=== PATIENT | male | born 1990 | race Hispanic/Latino ===

== ENCOUNTER 2018-05-14 01:58 | Emergency (ER) | payer OTHER ==
[2018-05-14 02:18] VITALS: O2SAT 98
[2018-05-14] MEDS ORDERED: Sodium Chloride 0.9% 1,000 ML IV ONE (02:35)
[2018-05-14] MEDS ORDERED: Bacitracin 500 Units/gm Oint Foilpak UD TOP STA (02:43)
[2018-05-14] MEDS ORDERED: Tdap Vaccine 0.5 ml Vial (10-64 yrs) IM ONE ×2 (03:02→04:33)
[2018-05-14 03:13] LABS: BASO # 0.1 K/uL (0.0-0.2); BASO % 1.1 % (0.0-2.0); EOS # 0.1 K/uL (0.0-0.7); EOS % 1.2 % (0.0-4.0); HEMOGLOBIN 13.7 g/dL (12.0-18.0); LYMPH # 2.5 K/uL (1.0-4.3); LYMPH % 25.5 % (20.0-40.0); MEAN CELL VOLUME 89.2 fl (80.0-94.0); MEAN CORPUSCULAR HEMOGLOBIN 28.7 pg (27.0-31.0); MEAN CORPUSCULAR HGB CONC 32.2 g/dL (33.0-37.0); MEAN PLATELET VOLUME 12.1 fl (7.2-11.7); MONO # 0.4 K/uL (0.0-0.8); MONO % 4.4 % (0.0-10.0); NEUT # 6.7 K/uL (1.8-7.0); NEUT % 67.8 % (50.0-75.0); NRBC % 0.1 % (0.0-0.0); RBC 4.77 Mil/uL (4.40-5.90); RED CELL DISTRIBUTION WIDTH 13.1 % (11.5-14.5); WHITE BLOOD COUNT 9.9 K/uL (4.8-10.8)
[2018-05-14 03:19] LABS: INR 0.9; PROTHROMBIN TIME 10.7 Seconds (9.8-13.1)
[2018-05-14 03:21] LABS: PARTIAL THROMBOPLASTIN TIME 33.3 Seconds (25.6-37.1)
[2018-05-14 03:24] LABS: BLOOD UREA NITROGEN 11 mg/dl (9-20); CALCIUM 8.7 mg/dL (8.4-10.2); GFR NON-AFRICAN AMERICAN > 60
--- NOTE | 2018-05-14 03:54 | ED PDOC ---
HPI: Psych/Substance Abuse Time Seen by Provider: 05/14/18 02:26 Chief Complaint (Nursing): Trauma Chief Complaint (Provider): Trauma History Per: Patient, Other (girlfriend at bedside) History/Exam Limitations: intoxication Onset/Duration Of Symptoms: Mins Modifying Factor(s): Alcohol Additional Complaint(s): 27 y/o male with no significant PMHx presents to the ED for evaluation of alcohol intoxication and a head injury. Girlfriend at bedside reports she was calling an Uber when the patient walked away from her. Girlfriend states she then received a call that the patient was stuck in a fence. When going to find the patient, girlfriend states she found him on the floor, bleeding from his head and vomiting, next to a fence. Girlfriend presumes patient attempted to climb a fence and fell. Patient is unable to recall exactly what happened, unsure of LOC. Girlfriend reports patient has since had more than 10 episodes of vomiting. At this time, patient additionally complains of a headache and nausea. Patient admits to drinking BOAT DEC[place]. Patient is a limited historian due to alcohol intoxication. Otherwise: (-) extremity pain, (-) chest pain, (-) abdominal pain, (-) shortness of breath, (-) visual changes (-) numbness/weakness. PMD: unknown Tetanus Vaccination is not up to date. Past Medical History Reviewed: Historical Data, Nursing Documentation, Vital Signs Vital Signs: Last Vital Signs Temp 98.2 F 05/14/18 02:15 Pulse 105 H 05/14/18 02:15 Resp 18 05/14/18 02:15 BP Pulse Ox 98 05/14/18 02:15 - Medical History PMH: No Chronic Diseases - Surgical History Surgical History: No Surg Hx - Family History Family History: States: Unknown Family Hx - Social History Current smoker - smoking cessation education provided: No Alcohol: Social - Immunization History Hx Tetanus Toxoid Vaccination: No - Home Medications Home Medications: Ambulatory Orders Medication Instructions Recorded Acetaminophen [Acetaminophen 8 650 mg PO Q8 PRN #21 tablet.er 05/14/18 Hour] RX: Bacitracin Ointment 1 applic TOP BID #1 tube 05/14/18 [Bacitracin] RX: Naproxen 500 mg PO BID PRN #20 tab 05/14/18 - Allergies Allergies/Adverse Reactions: Allergies Allergy/AdvReac Type Severity Reaction Status Date / Time peanut Allergy ANAPHYLAXIS Verified 05/14/18 02:15 Review of Systems ROS Statement: Except As Marked, All Systems Reviewed And Found Negative Eyes: Negative for: Vision Change Cardiovascular: Negative for: Chest Pain Respiratory: Negative for: Shortness of Breath Gastrointestinal: Positive for: Nausea, Vomiting. Negative for: Abdominal Pain Musculoskeletal: Positive for: Other (Head Injury ). Negative for: Arm Pain, Leg Pain Neurological: Positive for: Headache Psych: Positive for: Other (alcohol intoxication) Physical Exam - Reviewed Nursing Documentation Reviewed: Yes Vital Signs Reviewed: Yes - Physical Exam Comments: GENERAL APPEARANCE: Patient is somnolent, actively vomiting, with odor of alcohol on breath. SKIN: Warm, dry; (-) cyanosis; (-) rash. HEAD: (+) Large area of edema to the frontal scalp and the left forehead. (+) superficial abrasions to the left side of forehead, (+) 3.5 cm linear, vertical laceration to the frontal scalp with active bleeding and surrounding tenderness (-) palpable bony deformity. EYES: (+) area of edema and ecchymosis to the lateral aspect of the left eye orbit. (+) superficial abrasions to the lateral aspect of the left eye orbit, (- ) conjunctival pallor, (-) scleral icterus. ENMT: Nose: (-) nasal tenderness (-) epistaxis; mucous membranes are dry. FROM mandible. No oral trauma. NECK: Supple, FROM (+) midline tenderness, (-) stiffness, (-) meningismus, (-) lymphadenopathy. CHEST AND RESPIRATORY: (-) rales, (-) rhonchi, (-) wheezes; breath sounds equal bilaterally. Respirations even and nonlabored. HEART AND CARDIOVASCULAR: (-) irregularity ABDOMEN AND GI: Soft; (-) tenderness (-) guarding (-) distention. EXTREMITIES: (-) deformity (-) limitation of motion (-) edema. NEURO AND PSYCH: Mental status as above. news anchor: Pupils equal and reactive; EOMI and painless; (-) facial asymmetry; tongue and uvula midline. Strength symmetric. Speech is slurred. Neuro exam limited due to intoxication. - Laboratory Results Result Diagrams: 05/14/18 02:50 05/14/18 02:50 - ECG O2 Sat by Pulse Oximetry: 98 (RA) Pulse Ox Interpretation: Normal Medical Decision Making Medical Decision Making: Time: 024 Impression: Alcohol Intoxication, Head Injury, Scalp Laceration Plan: -- CT Cervical Spine w/o Contrast -- CT Head w/o Contrast -- CT Maxillofacial w/o Contrast -- Alcohol Serum -- BMP -- CBC with differentials -- PTT -- Prothrombin Time -- Adacel (10-64 years) 0.5 ml IM -- Bacitracin 1 ea TOP -- Sodium chloride 0.9% IV 1000 mls/hr -- Sodium chloride 0.9% IV 1000 mlsh/hr -- Zofran Inj 8 mg IVP -- Food Beverage Manager -- IV Insertion [address] Serum alcohol: 291 CBC grossly unremarkable. CMP with slight hypokalemia. Coag profile WNL. 0445 Patient more awake in ED and interacting with girlfriend at bedside. Still unable to recall what happened BO[place]. Wound repair performed by Tamara MERCADO. See procedure note. Additional 1L NS ordered. Time: 521 CT RESULTS FINDINGS: BRAIN No acute intraparenchymal hemorrhage. No mass lesion. No CT evidence for acute territorial infarct. No midline shift or extra-axial collections. VENTRICLES: No hydrocephalus. ORBITS: The orbits are unremarkable. SINUSES AND MASTOIDS: The paranasal sinuses and mastoid air cells are clear. BONES: No fracture. SOFT TISSUES: Large left forehead hematoma is noted. IMPRESSION: No acute intracranial abnormality. Large left forehead hematoma. Electronically signed on May 14, 2018 5:22:02 AM EST by: Mannie Castro M.D., MBA Certified By ABR & CBC[employer] Fellowship Trained MRI and CT Specialist CT MAXILLOFACIAL FINDINGS: BRAIN No acute intraparenchymal hemorrhage. No mass lesion. No CT evidence for acute territorial infarct. No midline shift or extra-axial collections. VENTRICLES: No hydrocephalus. ORBITS: The orbits are unremarkable. SINUSES AND MASTOIDS: The paranasal sinuses and mastoid air cells are clear. BONES: No fracture. SOFT TISSUES: Large left forehead hematoma is noted. IMPRESSION: No acute intracranial abnormality. Large left forehead hematoma. Electronically signed on May 14, 2018 5:22:02 AM EST by: Mannie Castro M.D., ELADIO Certified By ABR & CBC[employer] Fellowship Trained MRI and CT Specialist CT CERVICAL RESULTS FINDINGS: ALIGNMENT: Bony alignment is anatomic. DEGENERATIVE CHANGES: No significant canal stenosis or neural foraminal narrowing evident. SOFT TISSUES: The prevertebral soft tissues are within normal limits. BONES: No acute fracture or aggressive appearing osseous lesion. IMPRESSION: No acute cervical spine abnormality. Electronically signed on May 14, 2018 5:25:35 AM EST by: Mannie Csatro M.D., MBA Certified By ABR & CBC[employer] Fellowship Trained MRI and CT Specialist Patient ambulatory in ED. Girlfriend at bedside states they will uber home. Patient oriented x3, requesting additional medicine for nausea. 4mg IVP zofran ordered. Staple removal advised in 5 days. 0615 On re-evaluation, patient reports improvement of symptoms. Lungs clear to auscultation, cardiac RRR, abdomen soft, non-tender, repeat neuro exam shows no focal findings. Vitals stable. Lab/Diagnostic results d/w the patient in great detail. Diagnosis of alcohol intoxication, scalp laceration, facial contusion, closed head injury s/p fall d/w the patient. Patient was observed in the ED for 4+ hours with no evidence of neurological deterioration. Based on history, exam and diagnostic results, plan will be for outpatient follow up with PMD/clinic. Patient instructed to follow-up with pmd / referral provided / the clinic in 1- 2 days without fail. Advised to take medication as prescribed. Return to the emergency room at any time for any new or worsening symptoms. Patient states he fully agrees with and understands discharge instructions. States that he agrees with the plan and disposition. Verbalized and repeated discharge instructions and plan. I have given the patient opportunity to ask any additional questions. Scribe Attestation: Documented by Telly Chung, acting as a scribe for Sally Mcdonald PA-C. Provider Scribe Attestation: All medical record entries made by the Scribe were at my direction and personally dictated by me. I have reviewed the chart and agree that the record accurately reflects my personal performance of the history, physical exam, medical decision making, and the department course for this patient. I have also personally directed, reviewed, and agree with the discharge instructions and disposition. Procedures - Laceration/Wound Repair Scalp Laceration Wound Length (cm): 4 Wound's Depth, Shape: superficial, linear Wound Explored: clean Irrigated w/ Saline (ccs): 100 Betadine Prep?: No Wound Debrided: minimal Wound Repaired With: [place] (x8) Layer Closure?: No Wound Complexity: Simple Progress: Patient tolerated procedure well. No complications. Advised staple removal in 5 days. Educated on wound care. Disposition - Clinical Impression Clinical Impression: Scalp laceration, Alcohol intoxication, Facial contusion, Fall, Head injury due to trauma, Black eye of left side - Patient ED Disposition Is Patient to be Admitted: No Counseled Patient/Family Regarding: Studies Performed, Diagnosis, Need For Followup, Rx Given - Disposition Referrals: [facility] [Outside] primary, [facility] [Other] Disposition: Routine/Home Disposition Time: 06:15 Condition: STABLE Additional Instructions: Staple removal in 5 days. The emergency medical care your child received today was directed towards the acute presenting symptoms. If your child was prescribed any medication, please fill it and give as directed. It may take several days for your sherlyn symptoms to resolve. Return to the Emergency Department at any time if symptoms worsen, do not improve, or if any other problems arise. Please contact your sherlyn doctor in 2 days for re-evaluation and follow up / or call one of the physicians/clinics you have been referred to that are listed on the Patient Visit Information form that is included in your discharge packet. Bring any paperwork you were given at discharge with you along with any medications to your follow up visit. Our treatment cannot replace ongoing medical care by a primary care provider (PCP) outside of the emergency department. Prescriptions: Acetaminophen [Acetaminophen 8 Hour] 650 mg PO Q8 PRN #21 tablet.er PRN Reason: Pain, Moderate (4-7) RX: Bacitracin Ointment [Bacitracin] 1 applic TOP BID #1 tube RX: Naproxen 500 mg PO BID PRN #20 tab PRN Reason: Pain, Moderate (4-7) Instructions: Concussion in Adults, Black Eye, Wound Care, Contusion (DC), Laceration Repair With [place] (DC), Minor Head Injury (DC), Effects of Alcohol on Your Health Forms: [id number] (Welsh), [facility] ED School/Work Excuse Print Language: GABONESE - POA Present On Arrival: Falls Or Trauma Results - Lab Results Lab Results: 05/14/18 05/14/18 05/14/18 02:50 02:50 02:50 WBC 9.9 RBC 4.77 Hgb 13.7 Hct 42.6 MCV 89.2 MCH 28.7 MCHC 32.2 L RDW 13.1 Plt Count 190 MPV 12.1 H Neut % (Auto) 67.8 Lymph % (Auto) 25.5 [place] % (Auto) 4.4 Eos % (Auto) 1.2 Baso % (Auto) 1.1 Neut # (Auto) 6.7 Lymph # (Auto) 2.5 [place] # (Auto) 0.4 Eos # (Auto) 0.1 Baso # (Auto) 0.1 PT 10.7 INR 0.9 APTT 33.3 Sodium 141 Potassium 3.3 L Chloride 104 Carbon Dioxide 24 Anion Gap 16 BUN 11 Creatinine 1.0 Est GFR ( Amer) > 60 Est GFR (Non-Af Amer) > 60 Random Glucose 133 H Calcium 8.7 Alcohol, Quantitative 291 H
[2018-05-14] MEDS ORDERED: Sodium Chloride 0.9% 1,000 ML IV SCH (04:30)
[2018-05-14 06:04] VITALS: BP 129/73; PULSE 87; RESP 16; TEMP 98
--- NOTE | 2018-05-14 15:18 | CT ---
Date of service: 05/14/2018 PROCEDURE: CT Cervical Spine without contrast HISTORY: Fall from fence COMPARISON: None available. TECHNIQUE: Axial computed tomography images were obtained of the cervical spine without the use of intravenous contrast. Coronal and sagittal reformatted images were created and reviewed. Radiation dose: Total exam DLP = 397.15 mGy-cm. This CT exam was performed using one or more of the following dose reduction techniques: Automated exposure control, adjustment of the mA and/or kV according to patient size, and/or use of iterative reconstruction technique. FINDINGS: VERTEBRAE: No fracture. Normal alignment. No destructive bony lesion. DISCS/SPINAL CANAL/NEURAL FORAMINA: No significant central canal or neural foraminal stenosis. Discs heights are grossly preserved. PARASPINAL SOFT TISSUES: Unremarkable. OTHER FINDINGS: None. IMPRESSION: No evidence of acute fractures.
--- NOTE | 2018-05-14 15:21 | CT ---
Date of service: 05/14/2018 PROCEDURE: CT HEAD WITHOUT CONTRAST. HISTORY: s/p fall COMPARISON: Comparison made with concurrent CT scan of the maxillofacial skeleton TECHNIQUE: Axial computed tomography images were obtained through the head/brain without intravenous contrast. Radiation dose: Total exam DLP = 978.16 mGy-cm. This CT exam was performed using one or more of the following dose reduction techniques: Automated exposure control, adjustment of the mA and/or kV according to patient size, and/or use of iterative reconstruction technique. FINDINGS: HEMORRHAGE: No acute parenchymal, subarachnoid or extra-axial hemorrhage.. BRAIN: No mass effect or edema. No atrophy or chronic microvascular ischemic changes. VENTRICLES: Unremarkable. No hydrocephalus. CALVARIUM: There are no acute calvarial fractures however note made of mild to moderate left supraorbital and frontal scalp contusion/soft tissue swelling with overlying laceration and a small amount of subcutaneous air. PARANASAL SINUSES: Minor mucosal thickening seen within ethmoid air complex. Changes. MASTOID AIR CELLS: Unremarkable as visualized. No inflammatory changes. OTHER FINDINGS: None. IMPRESSION: No acute intracranial hemorrhage. Mild to moderate left supraorbital and frontal scalp contusion/soft tissue swelling with overlying laceration and a small amount of subcutaneous air..
--- NOTE | 2018-05-14 15:25 | CT ---
Date of service: 05/14/2018 PROCEDURE: CT MAXILLOFACIAL BONES WITHOUT CONTRAST HISTORY: Status post fall COMPARISON: Comparison made with concurrent CT scan brain. TECHNIQUE: Contiguous axial CT images of the maxillofacial bones were obtained. Coronal and sagittal reformats were generated. Radiation dose: Total exam DLP = 898.31 mGy-cm. This CT exam was performed using one or more of the following dose reduction techniques: Automated exposure control, adjustment of the mA and/or kV according to patient size, and/or use of iterative reconstruction technique. FINDINGS: NASAL BONES: Unremarkable. ORBITS: The bony orbits intact.. Globes intact and lenses appropriately located. There are no retrobulbar hemorrhages or collections seen. Minor left lateral periorbital soft tissue swelling extending posteriorly over the zygomatic arch and temporal region. PARANASAL SINUSES/ MASTOIDS: Minor mucosal thickening seen within the left maxillary antrum several ethmoid air cells extending slightly into the inferior margin of the frontal sinus. There also minor mucosal thickening in the sphenoid sinus sphenoid sinus MAXILLA: Unremarkable. MANDIBLE/ TEMPOROMANDIBULAR JOINTS: Unremarkable. SKULL BASE: Unremarkable. TEMPORAL BONES: Middle ears and mastoid grossly unremarkable. OTHER FINDINGS: There is a moderate-sized left supraorbital and frontal scalp contusion/soft tissue swelling associated with overlying laceration and small amount of subcutaneous air. IMPRESSION: No acute fractures. Left supraorbital and left frontal scalp contusion/soft tissue swelling with laceration and a small amount subcutaneous air. Swelling extends over the left zygomatic arch and left temporal region as well.. Minimal mucosal thickening within the aforementioned paranasal sinuses as above.
== END 2018-05-14 06:32 | disposition home or self-care (01) ==
LOC: H.ER 01:58
DX: F10.129 Alcohol abuse with intoxication, unspecified (principal); S01.01XA Laceration without foreign body of scalp, initial encounter; S00.83XA Contusion of other part of head, initial encounter; S00.12XA Contusion of left eyelid and periocular area, initial encounter; W19.XXXA Unspecified fall, initial encounter; Y92.89 Other specified places as the place of occurrence of the external cause
CPT/HCPCS: 12001; 70450; 70486; 72125; 80048; 80320; 85025; 85610; 85730; 90471; 90715; 96361; 96374; 99285; J2405; J7030